=== PATIENT | female | born 1950 | race Caucasian/White ===

== ENCOUNTER → 2016-11-19 | Outpatient (CLI) | payer MEDICARE ==
[~2016-11-19] MED LIST: ASPI-496 PO; ASPI-621 PO; ATOR20TA PO; ATOR80TA PO; CALC0.25 PO; FEXO1TAB25 PO; HYDR12.53 PO; LISI5TAB7 PO; METO25TA91 PO; POTA10TA11 PO; POTA99TA3 PO; RANI-276 PO; RANI150T8 PO; TICA90TA PO; TYLENOL PO; VITAMIN B PO; VITAMIN C PO; ZINC25CA PO
[2016-11-19 12:01] LABS: BLOOD UREA NITROGEN 15 mg/dL (7-18)
[2016-11-19 12:05] LABS: ASPARTATE AMINO TRANSFERASE 11 U/L (15-37)
== END | disposition home or self-care (01) ==
LOC: STAR 10:27
PROVIDERS: ATTEND Specialist
DX: Z01.818 Encounter for other preprocedural examination (principal); C54.9 Malignant neoplasm of corpus uteri, unspecified; Z90.710 Acquired absence of both cervix and uterus; Z90.722 Acquired absence of ovaries, bilateral; R79.1 Abnormal coagulation profile
CPT/HCPCS: 36415; 80053; 85025; 85610; 85730; 86304; 93005

== ENCOUNTER → 2016-11-21 | Outpatient (CLI) | payer MEDICARE | END | disposition home or self-care (01) | LOC: RAD 09:27 | PROVIDERS: ATTEND Specialist | DX: Z01.818 Encounter for other preprocedural examination (principal); C54.9 Malignant neoplasm of corpus uteri, unspecified; Z90.710 Acquired absence of both cervix and uterus | CPT/HCPCS: 71020 ==

== ENCOUNTER 2016-11-26 10:29 | Day surgery (SDC) | payer MEDICARE ==
[~2016-11-26] VITALS: Ht 167.6 cm; Wt 78.7 kg
[~2016-11-26 10:29] MED LIST changes: +BUPIVACAINE/PF-EPI 0.25% 1:200K ONE
[2016-11-26 11:11] VITALS: BP 114/76
[2016-11-26] MEDS ORDERED: LACTATED RINGERS 1,000 ML IV SCH ×2 (11:12→15:25)
[2016-11-26] MEDS ORDERED: CALC-586 PO (11:24)
[2016-11-26] MEDS ORDERED: VITA1CAP7 PO (11:24)
[2016-11-26] MEDS ORDERED: CHOL20002 PO (11:24)
[2016-11-26] MEDS ORDERED: ACET-1600 PO (11:24)
[2016-11-26] MEDS ORDERED: LIDOCAINE 1%, 2ML SQ PRN (11:30)
[2016-11-26] MEDS ORDERED: METOPROLOL 1 MG/ML, 5ML ONE (13:42)
[2016-11-26] MEDS ORDERED: GLYCOPYRROLATE 0.2MG/1ML ONE (13:42)
[2016-11-26] MEDS ORDERED: ONDANSETRON 2MG/ML, 2ML ONE (13:42)
[2016-11-26] MEDS ORDERED: hydrALAzine 20 MG/ML, 1ML ONE (13:42)
[2016-11-26] MEDS ORDERED: LABETALOL 20 MG/4 ML ONE (13:42)
[2016-11-26] MEDS ORDERED: NEOSTIGMINE 1 MG/ML, 10ML ONE (13:42)
[2016-11-26] MEDS ORDERED: DEXAMETHASONE 4 MG/ML, 1ML ONE (13:42)
[2016-11-26] MEDS ORDERED: CEFOTETAN 1 GM ONE (13:42)
[2016-11-26] MEDS ORDERED: ROCURONIUM 10 MG/ML ONE (13:42)
[2016-11-26] MEDS ORDERED: PROPOFOL 10 MG/ML, 20ML ONE (13:42)
[2016-11-26] MEDS ORDERED: FENTANYL PF 250 MCG/5ML ONE ×2 (13:44→13:53)
[2016-11-26] MEDS ORDERED: MEPERIDINE/PF 25MG/0.5ML IVPush PRN (14:30)
[2016-11-26] MEDS ORDERED: METOPROLOL 1 MG/ML, 5ML IV PRN (14:30)
[2016-11-26] MEDS ORDERED: ALBUTEROL/IPRATROPIUM 2.5MG/0.5MG, 3 ML NPPB PRN (14:30)
[2016-11-26] MEDS ORDERED: OXYcodone 5 MG/5 ML ORAL.SOL UDC PO PRN (14:30)
[2016-11-26] MEDS ORDERED: ACETAMINOPHEN 325 MG TABLET PO PRN (14:30)
[2016-11-26] MEDS ORDERED: PROMETHAZINE 25 MG/ML, 1ML IV PRN (14:30)
[2016-11-26] MEDS ORDERED: HYDROmorphone 1 MG/ML, 1ML IV PRN (14:30)
[2016-11-26] MEDS ORDERED: hydrALAzine 20 MG/ML, 1ML IV PRN (14:30)
[2016-11-26] MEDS ORDERED: INDOCYANINE GREEN 25 MG VIAL INJ ONE (14:36)
[2016-11-26] MEDS ORDERED: FENTANYL PF 100 MCG/2ML ONE (15:18)
[2016-11-26] MEDS ORDERED: OXYcodone 5 MG/5 ML ORAL.SOL UDC ONE (15:18)
[2016-11-26] MEDS: FENTANYL PF 100 MCG/2ML IV PRN ×2 (15:27→15:40)
[2016-11-26] MEDS ORDERED: KETOROLAC 30 MG/1 ML IVPush PRN (15:30)
[2016-11-26] MEDS ORDERED: ONDANSETRON 2MG/ML, 2ML IVPush PRN (15:30)
[2016-11-26] MEDS ORDERED: OXYcodone/APAP 5/325MG TABLET PO PRN (15:30)
[2016-11-26] MEDS ORDERED: morphine SULFATE 10 MG/ML, 1ML IVPush PRN (15:30)
[2016-11-26] MEDS ORDERED: KETOROLAC 30 MG/1 ML ONE (16:04)
[2016-11-26] MEDS ORDERED: MEPERIDINE/PF 25MG/0.5ML ONE (16:07)
[2016-11-26] MEDS ORDERED: INDOCYANINE GREEN 25 MG VIAL ONE (16:59)
== END 2016-11-26 19:45 | disposition home or self-care (01) ==
LOC: OUT 10:29
PROVIDERS: ATTEND Specialist
DX: C54.1 Malignant neoplasm of endometrium (principal); D25.2 Subserosal leiomyoma of uterus; N80.0 Endometriosis of uterus; N83.312 Acquired atrophy of left ovary; N83.311 Acquired atrophy of right ovary; I25.10 Atherosclerotic heart disease of native coronary artery without angina pectoris; Z95.5 Presence of coronary angioplasty implant and graft; F17.210 Nicotine dependence, cigarettes, uncomplicated; I10 Essential (primary) hypertension; E78.2 Mixed hyperlipidemia; Z90.49 Acquired absence of other specified parts of digestive tract; Z80.0 Family history of malignant neoplasm of digestive organs; Z80.3 Family history of malignant neoplasm of breast; Z80.49 Family history of malignant neoplasm of other genital organs
CPT/HCPCS: 36415; 38570; 58571; 86850; 86900; 86923; 88305; 88307; 88333; 88334; J0360; J1100; J1885; J2175; J2405; J2704; J2710; J3010; J3490; J7120; S0074

== ENCOUNTER → 2017-03-28 | Outpatient (CLI) | payer MEDICARE ==
[~2017-03-28] MED LIST changes: +ACET-1600 PO; -BUPIVACAINE/PF-EPI 0.25% 1:200K ONE; +CALC-586 PO; +CHOL20002 PO; +REGADENOSON 0.4 MG/5 ML SYRINGE ONE; +VITA1CAP7 PO
== END | disposition home or self-care (01) ==
LOC: CFH 07:36
PROVIDERS: ATTEND Internal Medicine Cardiovascular Disease
DX: I25.10 Atherosclerotic heart disease of native coronary artery without angina pectoris (principal); I10 Essential (primary) hypertension
CPT/HCPCS: 78452; 93017; A9502; J2785

== ENCOUNTER 2018-11-12 08:51 | Outpatient (CLI) | payer MEDICARE ==
[~2018-11-12 08:51] MED LIST changes: -ASPI-621 PO; +ASPI81TA45 PO; -CHOL20002 PO; +CHOL200052 PO; +HYDR12.517 PO; -HYDR12.53 PO; -RANI-276 PO; +RANI-448 PO; +RANI150T23 PO; -RANI150T8 PO; -REGADENOSON 0.4 MG/5 ML SYRINGE ONE
== END 2018-11-12 23:59 | disposition home or self-care (01) ==
LOC: CFH 08:51
PROVIDERS: ATTEND Internal Medicine Cardiovascular Disease
DX: I35.8 Other nonrheumatic aortic valve disorders (principal); I10 Essential (primary) hypertension; E11.9 Type 2 diabetes mellitus without complications; E78.5 Hyperlipidemia, unspecified; I25.2 Old myocardial infarction; C54.1 Malignant neoplasm of endometrium; Z87.891 Personal history of nicotine dependence
CPT/HCPCS: 71046; 93306

== ENCOUNTER → 2020-03-28 | Outpatient (CLI) | payer MEDICARE ==
[~2020-03-28] MED LIST changes: -RANI-448 PO; +RANI-460 PO; +RANI-467 PO; -RANI150T23 PO; +REGADENOSON 0.4 MG/5 ML SYRINGE ONE
== END | disposition home or self-care (01) ==
LOC: CFH 08:22
PROVIDERS: ATTEND Internal Medicine Cardiovascular Disease
DX: I10 Essential (primary) hypertension (principal); I25.10 Atherosclerotic heart disease of native coronary artery without angina pectoris
CPT/HCPCS: 78452; 93017; A9502; J2785